=== PATIENT | female | born 1955 | race Caucasian/White ===

== ENCOUNTER → 2024-02-26 13:34 | Outpatient (REF) | payer MEDICARE, OTHER, SELFPAY | LOC: HWRAD 13:34 | PROVIDERS: ATTENDING PHYSICIAN Family Medicine | DX: R73.01 Impaired fasting glucose (principal); E78.2 Mixed hyperlipidemia | CPT/HCPCS: 75571 ==

== ENCOUNTER → 2024-03-09 14:36 | Outpatient (REF) | payer MEDICARE, OTHER, SELFPAY | LOC: HWWDC 14:36 | PROVIDERS: ATTENDING PHYSICIAN Family Medicine | DX: Z12.31 Encounter for screening mammogram for malignant neoplasm of breast (principal) | CPT/HCPCS: 77063; 77067 ==

== ENCOUNTER → 2024-06-12 12:12 | Outpatient (REF) | payer MEDICARE, OTHER, SELFPAY | LOC: PAVMRI 12:12 | PROVIDERS: ATTENDING PHYSICIAN Family Medicine | DX: S83.411D Sprain of medial collateral ligament of right knee, subsequent encounter (principal); M25.561 Pain in right knee; G89.29 Other chronic pain | CPT/HCPCS: 73721 ==